=== PATIENT | female | born 1980 | race Two or more races ===

== ENCOUNTER 2022-10-10 22:50 | Emergency (ER) | payer OTHER ==
[~2022-10-10] VITALS: Ht 165.1 cm; Wt 65.8 kg
[2022-10-10 23:45] VITALS: BP 104/56
--- NOTE | 2022-10-10 23:45 | NUR ---
BIBSELF from home c/o there is a condom stuck in her vagina during intercourse. Denies pain.
--- NOTE | 2022-10-10 23:58 | NUR ---
PELVIC EXAM DONE BY COLTEN SERVICE DESK ASSOCIATE AND FEMALE INSURANCE ADMINISTRATIVE ASSISTANT. CONDOM REMOVED FROM VAGINA.
--- NOTE | 2022-10-11 00:22 | NUR ---
Patient discharged to home in stable condition. Written and verbal after care instructions given. Patient verbalizes understanding of instruction.
== END 2022-10-11 00:39 | disposition home or self-care (01) ==
LOC: ER 22:53
DX: T19.2XXA Foreign body in vulva and vagina, initial encounter (principal); X58.XXXA Exposure to other specified factors, initial encounter; Y93.89 Activity, other specified; Y92.89 Other specified places as the place of occurrence of the external cause; Y99.8 Other external cause status